=== PATIENT | male | born 1955 | race Caucasian/White ===

== ENCOUNTER → 2022-02-17 | Outpatient (CLI) | payer MEDICARE, OTHER ==
[~2022-02-17] MED LIST: ALDACTONE50 MG PO; COREG 3.125M3.125 MG PO; ENULOSE10 GM/15 M PO; FENOFIBRATE134 MG PO; K-DUR TAB 10 M10 MEQ PO; KLONOPIN TAB 00.5 MG PO; MOBIC15 MG PO; NEURONTIN 100100 MG PO; PRINIVIL10 MG PO; RANITIDINE HCL300 M1 PO
== END ==
LOC: HEART CORB 09:00
DX: I10 Essential (primary) hypertension (principal); R07.2 Precordial pain; R06.02 Shortness of breath; I27.20 Pulmonary hypertension, unspecified; I08.8 Other rheumatic multiple valve diseases
CPT/HCPCS: 78452; 93306; A9502; J2785